=== PATIENT | male | born 1980 | race Caucasian/White ===

== ENCOUNTER 2017-11-07 18:02 | Emergency (ER) | payer OTHER | END 2017-11-07 19:47 | disposition home or self-care (01) | LOC: E/R 18:02 | DX: S69.91XA Unspecified injury of right wrist, hand and finger(s), initial encounter (principal); W27.0XXA Contact with workbench tool, initial encounter; Y92.9 Unspecified place or not applicable | CPT/HCPCS: 73130; 73130-RT; 99283-25 ==